=== PATIENT | female | born 1985 | race Caucasian/White ===

== ENCOUNTER → 2025-03-16 | Outpatient (CLI) | payer MEDICAID, SELFPAY ==
--- NOTE | 2025-03-16 10:15 | US_ITS ---
PROCEDURE: ABD LIMITED W/ ELASTOGRAPHY, 03/16/2025 REASON FOR EXAM: FATTY LIVER COMPARISON: None TECHNIQUE: Grayscale and color Doppler imaging of the right upper quadrant was performed. Elastography was performed for non-invasive assessment of liver tissue stiffness utilizing a [employer] S-shear wave imaging unit. FINDINGS: Liver: Markedly echogenic. 22.6 cm in length. Gallbladder: Limited evaluation due to underdistention. Cholelithiasis. Wall thickness measured at 6 mm however favored overestimated and potentially related to underdistention. No visualized sludge, or pericholecystic fluid. Reportedly, sonographic Melendez's was negative. Biliary tree: Unremarkable. CBD measures 2 mm. Pancreas: Partially obscured by shadowing bowel gas, grossly unremarkable as visualized. Right kidney: Unremarkable. 10.8 cm in length. Other: No visualized free fluid. Hepatic elastography: Number of measurements: 15 measurements across 3 regions, 5 measurements per region. US probe: CA1-7A. EQI median: 6.1 kPa EQI median velocity: 1.41 m/s IQR/Med: 13.4-28.4% (kPa) and 6.0-13.6% (m/s). If the IQR/Med is IQR/median >30% (for kPa) or >15% in m/s, the variance in the measurements is a large and the accuracy of the measurement may be in question. US/ABD Limited w/ Elastography IMPRESSION: 1. Hepatomegaly and appearance of the hepatic parenchyma which is typically ass ociated with hepatic steatosis although fibrosis/early cirrhosis may appear similarly. Correlate with clinical and lab oratory evaluation. 2. Cholelithiasis with mild gallbladder wall thickening versus underdistention. No visualized pericholecystic fluid to confirm acute cholecystitis. Reportedly, sonographic Melendez's was negative however thi s should be confirmed by clinician exam. No biliary dilatation. 3. Liver stiffness is 6.1 kPa. Per the below 2020 SRU criteria, this rules out compensated advanced chronic liver disease in the absence of other known clinical signs. If there are known clinical signs, furth er testing may be needed for confirmation. 4. Additional description as above. Assessment is per the Update to the SRU Liver Elastography Consensus Statement (2020) Note that the above assessment of liver fibrosis is vendor-neutral and intended for use in fibrosis related to viral etiologies and non-alcoholic fatty-liver disease (NAFLD); in causes other than viral hepat itis and NAFLD, the cutoff values are currently not well established. In some patients with NAFLD, the cutoff values for cACLD may be lower (7-9 kPa). Note also that in the setting of elevated LFTs, nonfasting or vascular congestion, the stage of lifer fibrosis may be overestimated. Previous SRU reference values: <1.37 m/s (5.7kPa): No to mild fibrosis 1.37 m/s - 2.2 m/s: Moderate to severe fibrosis >2.2 m/s (15kPa): Significant fibrosis / cirrhosis Reading Location: [id number]
== END | disposition home or self-care (01) ==
PROVIDERS: PCP Family Medicine; Referring Provider Internal Medicine; Visit Provider Internal Medicine
DX: K76.0 Fatty (change of) liver, not elsewhere classified (principal)
CPT/HCPCS: 76705; 76981